=== PATIENT | female | born 1970 | race Caucasian/White ===

== ENCOUNTER 2023-06-21 19:57 | Inpatient (IN) | payer MEDICAID ==
[~2023-06-21] VITALS: Ht 160 cm; Wt 83.0 kg
[2023-06-21 20:06] VITALS: BP_SYST 133; PULSE 105; RESP 18; TEMP 99.1; O2SAT 100
[2023-06-21 20:48] LABS: BASOPHILS % (AUTO) 0.6 % (0.0-2.0); HEMATOCRIT 26.4 % (36-48); HEMOGLOBIN 8.1 g/dL (12.0-16.0); LYMPHOCYTES # (AUTO) 0.9 K/uL (1.0-5.5); LYMPHOCYTES % (AUTO) 10.9 % (20.5-51.5); MEAN CORPUSCULAR HEMOGLOBIN 18 pg (27-31); MEAN CORPUSCULAR HGB CONC 31 % (32-36); MEAN CORPUSCULAR VOLUME 60 fL (79.0-98.0); MONOCYTES # (AUTO) 0.5 K/uL (0.0-1.0); MONOCYTES % (AUTO) 6.4 % (1.7-9.3); NEUTROPHILS # (AUTO) 6.7 K/uL (1.8-7.7); NEUTROPHILS % (AUTO) 82.1 % (40.0-70.0); PLATELET COUNT (AUTO) 285 K/uL (130-430); RED BLOOD CELL COUNT(AUTO) 4.41 MIL/uL (4.2-6.2); RED CELL DISTRIBUTION WIDTH 20.8 % (9.0-15.0); WHITE BLOOD COUNT (AUTO) 8.1 K/uL (4.8-10.8)
[2023-06-21 20:52] LABS: ALANINE AMINOTRANSFERASE 137 U/L (12-78); ALBUMIN 3.4 g/dL (3.4-4.8); ANION GAP 10 (5-15); ASPARTATE AMINOTRANSFERASE 119 U/L (10-37); CALCIUM 9.5 mg/dL (8.4-11.0); CARBON DIOXIDE 26 mmol/L (23-29); CHLORIDE 101 mmol/L (98-107); CREATININE 0.81 mg/dL (0.55-1.30); GFR AFRICAN AMERICAN 96 mL/min (>90); GLUCOSE 112 mg/dL (74-106); POTASSIUM 3.1 mmol/L (3.5-5.1); SODIUM SERUM 137 mmol/L (136-145); TOTAL BILIRUBIN 0.5 mg/dL (0.0-1.0); TOTAL PROTEIN, SERUM 7.8 g/dL (6.4-8.3); UREA NITROGEN, BLOOD 12 mg/dL (8-21)
[2023-06-21 20:54] LABS: GFR NON AFRICAN-AMERICAN 80 mL/min (>90)
[2023-06-21 20:58] LABS: BILIRUBIN,DIRECT 0.2 mg/dL (0.0-0.3)
[2023-06-21 21:00] LABS: BILIRUBIN,URINE NEGATIVE (NEGATIVE); BLOOD, URINE NEGATIVE (NEGATIVE); COLOR,URINE YELLOW (YELLOW); GLUCOSE,URINE NEGATIVE (NEGATIVE); KETONES,URINE NEGATIVE (NEGATIVE); LEUKOCYTE ESTERASE ,URINE 2+ (NEGATIVE); NITRITE, URINE NEGATIVE (NEGATIVE); PH,URINE 6.5 (5.0-8.0); PROTEIN URINE 1+ (NEGATIVE)
[2023-06-21 21:02] LABS: ANISOCYTOSIS 2+; HYPOCHROMASIA 1+; OVALOCYTES FEW
[2023-06-21 21:07] LABS: CLARITY/URINE HAZY (CLEAR)
[2023-06-21 21:08] LABS: BACTERIA,URINE FEW /HPF (None Seen); MUCUS,URINE 1+ /LPF (None Seen); RBC,URINE 0-3 /HPF (0-3)
[2023-06-21] MEDS ORDERED: cefTRIAXone 1 GM VIAL ONE (21:34)
[2023-06-21] MEDS: cefTRIAXone 1 GM in D5W 50 ML IV ONE (21:44)
[2023-06-21] MEDS ORDERED: DOCUSATE SODIUM 100 MG CAPSULE PO PRN (21:45)
[2023-06-21] MEDS ORDERED: LORazepam 2 MG/ML VIAL IVP PRN (21:45)
[2023-06-21] MEDS ORDERED: MAGNESIUM SULFATE 50 ML IV PRN (21:45)
[2023-06-21] MEDS ORDERED: MUPIROCIN 2% TOPICAL OINTMENT 22 GM NS PRN (21:45)
[2023-06-21] MEDS ORDERED: ONDANSETRON HCL 4 MG/2 ML VIAL IVP PRN (21:45)
[2023-06-21] MEDS ORDERED: MORPHINE 2 MG/ML INJ. SYRINGE IVP PRN ×2 (21:45)
[2023-06-21] MEDS: POTASSIUM CHLORIDE 20 MEQ TABLET.ER PO ONE (21:49)
[2023-06-21] MEDS ORDERED: iohexoL 350 mgI/mL, 100 ML INFUS..BTL IV ONE (21:55)
[2023-06-21] MEDS ORDERED: LOSA-413 PO (22:45)
[2023-06-21] MEDS: NACL 0.9% 1,000 ML IV ONE (22:48)
[2023-06-21 23:50] LABS: INFLUENZA TYPE A Negative (NEGATIVE); INFLUENZA TYPE B NEGATIVE (NEGATIVE)
[2023-06-22 00:09] VITALS: BP_SYST 149; PULSE 104; RESP 17; TEMP 99.6; O2SAT 98
[2023-06-22] MEDS: NACL 0.9% 1,000 ML IV SCH (01:02)
[2023-06-22 06:17] LABS: CALCIUM 8.4 mg/dL (8.4-11.0); CREATININE 0.73 mg/dL (0.55-1.30); POTASSIUM 3.2 mmol/L (3.5-5.1)
[2023-06-22 06:19] LABS: LYMPHOCYTES # (AUTO) 0.9 K/uL (1.0-5.5); MONOCYTES # (AUTO) 0.5 K/uL (0.0-1.0); RED BLOOD CELL COUNT(AUTO) 3.91 MIL/uL (4.2-6.2)
[2023-06-22 06:29] LABS: BASOPHILS % (AUTO) 0.7 % (0.0-2.0); HEMATOCRIT 23.6 % (36-48); HEMOGLOBIN 7.1 g/dL (12.0-16.0); LYMPHOCYTES % (AUTO) 14.1 % (20.5-51.5); MEAN CORPUSCULAR HEMOGLOBIN 18 pg (27-31); MEAN CORPUSCULAR HGB CONC 30 % (32-36); MEAN CORPUSCULAR VOLUME 60 fL (79.0-98.0); MONOCYTES % (AUTO) 8.3 % (1.7-9.3); NEUTROPHILS # (AUTO) 4.7 K/uL (1.8-7.7); NEUTROPHILS % (AUTO) 76.9 % (40.0-70.0); PLATELET COUNT (AUTO) 271 K/uL (130-430); RED CELL DISTRIBUTION WIDTH 21.2 % (9.0-15.0); WHITE BLOOD COUNT (AUTO) 6.1 K/uL (4.8-10.8)
[2023-06-22 08:00] VITALS: BP_SYST 142; PULSE 92; RESP 20; TEMP 98; O2SAT 99
[2023-06-22 08:10] VITALS: O2SAT 97
[2023-06-22] MEDS: cefTRIAXone 1 GM in D5W 50 ML IV SCH (09:02)
[2023-06-22] MEDS: POTASSIUM CHLORIDE 20 MEQ TABLET.ER PO PRN (09:02)
[2023-06-22] MEDS: ACETAMINOPHEN 325 MG TABLET PO PRN (09:02)
[2023-06-22 16:00] VITALS: BP_SYST 138; PULSE 85; RESP 18; TEMP 97.3; O2SAT 98
[2023-06-22 20:00] VITALS: BP_SYST 130; PULSE 97; RESP 18; TEMP 97.5; O2SAT 95; O2SAT 97
[2023-06-23] VITALS (7 sets, daily range): BP systolic 135–144; PULSE 92–112; RESP 17–18; TEMP 97.5–103.1; O2SAT 94–97
[2023-06-23 05:43] LABS: BASOPHILS % (AUTO) 0.7 % (0.0-2.0); LYMPHOCYTES # (AUTO) 0.8 K/uL (1.0-5.5); LYMPHOCYTES % (AUTO) 13.8 % (20.5-51.5); MEAN CORPUSCULAR HEMOGLOBIN 18 pg (27-31); RETICULOCYTE COUNT 2.4 % (0.5-1.5)
[2023-06-23 05:47] LABS: INR 1.1 (0.8-1.2); PROTHROMBIN TIME 11.4 SECS (9.5-12.5)
[2023-06-23 05:54] LABS: CALCIUM 8.4 mg/dL (8.4-11.0); CREATININE 0.66 mg/dL (0.55-1.30); POTASSIUM 3.5 mmol/L (3.5-5.1)
[2023-06-23 06:17] LABS: EOSINOPHILS % (AUTO) 0.1 % (0.0-4.0); HEMATOCRIT 22.2 % (36-48); MEAN CORPUSCULAR HGB CONC 30 % (32-36); MEAN CORPUSCULAR VOLUME 60 fL (79.0-98.0); MONOCYTES # (AUTO) 0.3 K/uL (0.0-1.0); MONOCYTES % (AUTO) 5.9 % (1.7-9.3); NEUTROPHILS # (AUTO) 4.6 K/uL (1.8-7.7); PLATELET COUNT (AUTO) 231 K/uL (130-430); RED BLOOD CELL COUNT(AUTO) 3.69 MIL/uL (4.2-6.2); RED CELL DISTRIBUTION WIDTH 21.4 % (9.0-15.0); WHITE BLOOD COUNT (AUTO) 5.7 K/uL (4.8-10.8)
[2023-06-23 08:09] LABS: HEMOGLOBIN 6.7 g/dL (12.0-16.0)
[2023-06-23 08:12] LABS: NEUTROPHILS % (AUTO) 79.5 % (40.0-70.0)
[2023-06-23 08:48] LABS: ALBUMIN 2.7 g/dL (3.4-4.8); BILIRUBIN,DIRECT 0.1 mg/dL (0.0-0.3); TOTAL BILIRUBIN 0.3 mg/dL (0.0-1.0); TOTAL PROTEIN, SERUM 6.3 g/dL (6.4-8.3)
[2023-06-23] MEDS: ACETAMINOPHEN 325 MG TABLET PO ONE (14:14)
[2023-06-23] MEDS: DIPHENHYDRAMINE INJ 50 MG/ML VIAL IVP ONE (14:32)
[2023-06-23 16:14] LABS: TOTAL IRON BIND. CAPACITY 278 ug/dL (250-450)
[2023-06-23 18:34] LABS: TOTAL IRON BIND. CAPACITY 272 ug/dL (250-450)
[2023-06-24] VITALS: BP_SYST 135; PULSE 103; RESP 18; TEMP 98.2; O2SAT 95
[2023-06-24 05:36] LABS: BASOPHILS % (AUTO) 0.5 % (0.0-2.0); EOSINOPHILS % (AUTO) 0.1 % (0.0-4.0); HEMATOCRIT 24.4 % (36-48); HEMOGLOBIN 7.5 g/dL (12.0-16.0); LYMPHOCYTES # (AUTO) 0.7 K/uL (1.0-5.5); MEAN CORPUSCULAR HEMOGLOBIN 19 pg (27-31); MEAN CORPUSCULAR HGB CONC 31 % (32-36); MEAN CORPUSCULAR VOLUME 61 fL (79.0-98.0); MONOCYTES # (AUTO) 0.4 K/uL (0.0-1.0); MONOCYTES % (AUTO) 6.3 % (1.7-9.3); NEUTROPHILS # (AUTO) 5.4 K/uL (1.8-7.7); NEUTROPHILS % (AUTO) 82.1 % (40.0-70.0); PLATELET COUNT (AUTO) 214 K/uL (130-430); RED BLOOD CELL COUNT(AUTO) 3.99 MIL/uL (4.2-6.2); RED CELL DISTRIBUTION WIDTH 22.3 % (9.0-15.0); WHITE BLOOD COUNT (AUTO) 6.6 K/uL (4.8-10.8)
[2023-06-24 06:16] LABS: CALCIUM 8.3 mg/dL (8.4-11.0); CREATININE 0.69 mg/dL (0.55-1.30); POTASSIUM 3.1 mmol/L (3.5-5.1)
[2023-06-24 07:27] LABS: ERYTHROCYTE SEDIMENTATION RATE 70 MM/HR (0-20)
[2023-06-24 08:00] VITALS: BP_SYST 148; PULSE 112; RESP 20; TEMP 99.8; O2SAT 94
[2023-06-24 08:57] LABS: HYPOCHROMASIA 1+
[2023-06-24 08:58] LABS: ANISOCYTOSIS 2+; OVALOCYTES FEW; TARGET CELLS RARE
[2023-06-24 09:00] VITALS: O2SAT 94
[2023-06-24] MEDS: SOD FERRIC GLUC COMPLEX/SUC 125 MG in NS 100 ML IV SCH (12:36)
[2023-06-24 12:45] VITALS: BP_SYST 136; PULSE 115; RESP 20; TEMP 98.4; O2SAT 97
[2023-06-24] MEDS: LOSARTAN POTASSIUM 50 MG TABLET (COZAAR) PO ONE (14:16)
[2023-06-24 16:00] VITALS: BP_SYST 127; PULSE 88; RESP 16; TEMP 98.4; O2SAT 94
[2023-06-24] MEDS: BISACODYL 5 MG TABLET.DR (DULCOLAX) PO ONE (17:21)
[2023-06-24] MEDS: GOLYTELY / COLYTE SOLUTION 4 LITERS PO ONE (17:30)
[2023-06-24 20:00] VITALS: BP_SYST 129; PULSE 99; RESP 18; TEMP 99.2; O2SAT 95
[2023-06-25] VITALS: BP_SYST 125; PULSE 102; RESP 18; TEMP 98.8; O2SAT 96
[2023-06-25 04:45] LABS: ERYTHROCYTE SEDIMENTATION RATE 58 MM/HR (0-20)
[2023-06-25 05:07] LABS: INR 1.1 (0.8-1.2); PROTHROMBIN TIME 11.8 SECS (9.5-12.5)
[2023-06-25 05:12] LABS: ALBUMIN 2.5 g/dL (3.4-4.8); CREATININE 0.7 mg/dL (0.55-1.30); TOTAL BILIRUBIN 0.3 mg/dL (0.0-1.0); TOTAL PROTEIN, SERUM 6.1 g/dL (6.4-8.3)
[2023-06-25 05:34] LABS: BASOPHILS # (AUTO) 0.1 K/uL (0.0-0.2); BASOPHILS % (AUTO) 0.9 % (0.0-2.0); HEMATOCRIT 23.3 % (36-48); HEMOGLOBIN 7.3 g/dL (12.0-16.0); LYMPHOCYTES # (AUTO) 0.7 K/uL (1.0-5.5); LYMPHOCYTES % (AUTO) 9.9 % (20.5-51.5); MEAN CORPUSCULAR HEMOGLOBIN 19 pg (27-31); MEAN CORPUSCULAR HGB CONC 31 % (32-36); MEAN CORPUSCULAR VOLUME 61 fL (79.0-98.0); MONOCYTES # (AUTO) 0.4 K/uL (0.0-1.0); MONOCYTES % (AUTO) 5.4 % (1.7-9.3); NEUTROPHILS % (AUTO) 83.8 % (40.0-70.0); PLATELET COUNT (AUTO) 181 K/uL (130-430); RED BLOOD CELL COUNT(AUTO) 3.84 MIL/uL (4.2-6.2); RED CELL DISTRIBUTION WIDTH 22.4 % (9.0-15.0); WHITE BLOOD COUNT (AUTO) 7.1 K/uL (4.8-10.8)
[2023-06-25 05:56] LABS: POTASSIUM 2.7 mmol/L (3.5-5.1)
[2023-06-25] MEDS: KCL 20 mEq in 100 mL (PREMIX) 100 ML IV ONE (07:15)
[2023-06-25 07:22] LABS: SERUM HCG (QUALITATIVE) NEGATIVE (NEGATIVE)
[2023-06-25 08:15] VITALS: BP_SYST 133; PULSE 117; RESP 19; TEMP 101.5; O2SAT 93; O2SAT 96
[2023-06-25] MEDS ORDERED: KCL 20 mEq in 100 mL (PREMIX) 100 ML IV ONE (09:00)
[2023-06-25] MEDS: LOSARTAN POTASSIUM 50 MG TABLET (COZAAR) PO SCH (10:53)
[2023-06-25] MEDS: CALCIUM GLUC 2 GM/100ML-NACL 100 ML IV ONE (11:14)
[2023-06-25 15:05] VITALS: BP_SYST 128; PULSE 98; RESP 16; TEMP 97.2; O2SAT 98
[2023-06-25] MEDS ORDERED: SIMETHICONE 40 MG/0.6 ML ML ONE (15:05)
[2023-06-25] MEDS ORDERED: fentaNYL CITRATE/PF 100 MCG/2 ML AMP ONE (15:06)
[2023-06-25] MEDS ORDERED: MIDAZOLAM HCL 5 MG/5 ML VIAL ONE (15:06)
[2023-06-25] MEDS: POTASSIUM CHLORIDE 40 MEQ, LIDOCAINE JECT 2% PF 100 MG 75 MG in NS 250 ML IV ONE (16:02)
[2023-06-25 16:12] VITALS: BP_SYST 145; PULSE 103; RESP 16; TEMP 97.7; O2SAT 93
[2023-06-25] MEDS ORDERED: NS 500 ML IV ONE ×2 (18:00)
[2023-06-25 19:00] VITALS: O2SAT 97
[2023-06-25 20:00] VITALS: BP_SYST 155; PULSE 110; RESP 20; TEMP 100; O2SAT 95
[2023-06-25] MEDS: PANTOPRAZOLE SODIUM 40 MG/VIAL (PROTONIX) IVP SCH (20:58)
[2023-06-26] VITALS (9 sets, daily range): BP systolic 127–157; PULSE 92–106; RESP 18–20; TEMP 97.8–102.6; O2SAT 92–98
[2023-06-26 05:23] LABS: BASOPHILS # (AUTO) 0.2 K/uL (0.0-0.2); BASOPHILS % (AUTO) 2.5 % (0.0-2.0); LYMPHOCYTES # (AUTO) 0.7 K/uL (1.0-5.5); LYMPHOCYTES % (AUTO) 9.8 % (20.5-51.5); MEAN CORPUSCULAR HEMOGLOBIN 19 pg (27-31); MEAN CORPUSCULAR HGB CONC 31 % (32-36); MEAN CORPUSCULAR VOLUME 61 fL (79.0-98.0); MONOCYTES # (AUTO) 0.3 K/uL (0.0-1.0); MONOCYTES % (AUTO) 4.7 % (1.7-9.3); PLATELET COUNT (AUTO) 163 K/uL (130-430); RED BLOOD CELL COUNT(AUTO) 3.58 MIL/uL (4.2-6.2); RED CELL DISTRIBUTION WIDTH 22.6 % (9.0-15.0); WHITE BLOOD COUNT (AUTO) 7.2 K/uL (4.8-10.8)
[2023-06-26 05:32] LABS: CREATININE 0.69 mg/dL (0.55-1.30); POTASSIUM 3.1 mmol/L (3.5-5.1)
[2023-06-26 05:37] LABS: ERYTHROCYTE SEDIMENTATION RATE 60 MM/HR (0-20)
[2023-06-26 07:28] LABS: HEMOGLOBIN 6.7 g/dL (12.0-16.0)
[2023-06-26] MEDS ORDERED: fentaNYL CITRATE/PF 100 MCG/2 ML AMP ONE (08:39)
[2023-06-26] MEDS ORDERED: MIDAZOLAM HCL 5 MG/5 ML VIAL ONE (08:40)
[2023-06-26] MEDS: ACETAMINOPHEN 325 MG TABLET PO PRN (09:02)
[2023-06-26] MEDS ORDERED: LIDOCAINE 1%, 20 ML MDV 20 ML ONE (14:12)
[2023-06-26] MEDS: POTASSIUM CHLORIDE 40 MEQ, LIDOCAINE JECT 2% PF 100 MG 50 MG in NS 250 ML IV ONE (15:23)
[2023-06-26] MEDS: DIPHENHYDRAMINE INJ 50 MG/ML VIAL IVP ONE ×2 (16:54→18:19)
[2023-06-26] MEDS: CALCIUM GLUC 2 GM/100ML-NACL 100 ML IV ONE (17:18)
[2023-06-26] MEDS: DIPHENHYDRAMINE INJ 50 MG/ML VIAL ONE (18:06)
[2023-06-27 00:05] VITALS: BP_SYST 129; PULSE 99; RESP 19; TEMP 98.7; O2SAT 99
[2023-06-27 05:13] LABS: ALBUMIN 2.1 g/dL (3.4-4.8); CALCIUM 8.1 mg/dL (8.4-11.0); CREATININE 0.65 mg/dL (0.55-1.30); POTASSIUM 3.5 mmol/L (3.5-5.1); TOTAL BILIRUBIN 0.9 mg/dL (0.0-1.0); TOTAL PROTEIN, SERUM 5.7 g/dL (6.4-8.3)
[2023-06-27 05:29] LABS: BASOPHILS % (AUTO) 0.4 % (0.0-2.0); EOSINOPHILS % (AUTO) 0.2 % (0.0-4.0); HEMATOCRIT 24.3 % (36-48); HEMOGLOBIN 7.7 g/dL (12.0-16.0); LYMPHOCYTES # (AUTO) 0.3 K/uL (1.0-5.5); LYMPHOCYTES % (AUTO) 4.2 % (20.5-51.5); MEAN CORPUSCULAR HEMOGLOBIN 20 pg (27-31); MEAN CORPUSCULAR HGB CONC 32 % (32-36); MEAN CORPUSCULAR VOLUME 63 fL (79.0-98.0); MONOCYTES # (AUTO) 0.4 K/uL (0.0-1.0); MONOCYTES % (AUTO) 5.7 % (1.7-9.3); NEUTROPHILS % (AUTO) 89.5 % (40.0-70.0); PLATELET COUNT (AUTO) 148 K/uL (130-430); RED BLOOD CELL COUNT(AUTO) 3.84 MIL/uL (4.2-6.2); RED CELL DISTRIBUTION WIDTH 25.4 % (9.0-15.0); WHITE BLOOD COUNT (AUTO) 7.8 K/uL (4.8-10.8)
[2023-06-27 06:10] LABS: ERYTHROCYTE SEDIMENTATION RATE 40 MM/HR (0-20)
[2023-06-27 08:12] VITALS: BP_SYST 143; PULSE 115; RESP 20; TEMP 100.9; O2SAT 93
[2023-06-27 13:25] VITALS: BP_SYST 139; PULSE 111; RESP 20; TEMP 100.3; O2SAT 94
[2023-06-27 20:02] VITALS: BP_SYST 129; PULSE 101; RESP 20; TEMP 99.5; O2SAT 95; O2SAT 96
[2023-06-28 00:45] VITALS: BP_SYST 131; PULSE 105; RESP 20; TEMP 99.8
[2023-06-28 06:09] LABS: BASOPHILS % (AUTO) 0.1 % (0.0-2.0); EOSINOPHILS # (AUTO) 0.1 K/uL (0.0-0.4); EOSINOPHILS % (AUTO) 0.6 % (0.0-4.0); HEMATOCRIT 24.2 % (36-48); HEMOGLOBIN 7.6 g/dL (12.0-16.0); LYMPHOCYTES # (AUTO) 0.7 K/uL (1.0-5.5); LYMPHOCYTES % (AUTO) 7.7 % (20.5-51.5); MEAN CORPUSCULAR HEMOGLOBIN 20 pg (27-31); MEAN CORPUSCULAR HGB CONC 32 % (32-36); MEAN CORPUSCULAR VOLUME 64 fL (79.0-98.0); MONOCYTES # (AUTO) 0.6 K/uL (0.0-1.0); MONOCYTES % (AUTO) 6.2 % (1.7-9.3); NEUTROPHILS # (AUTO) 7.8 K/uL (1.8-7.7); NEUTROPHILS % (AUTO) 85.4 % (40.0-70.0); PLATELET COUNT (AUTO) 208 K/uL (130-430); RED BLOOD CELL COUNT(AUTO) 3.79 MIL/uL (4.2-6.2); RED CELL DISTRIBUTION WIDTH 25.3 % (9.0-15.0); WHITE BLOOD COUNT (AUTO) 9.2 K/uL (4.8-10.8)
[2023-06-28 06:12] LABS: CALCIUM 7.9 mg/dL (8.4-11.0); CREATININE 0.66 mg/dL (0.55-1.30); POTASSIUM 3.2 mmol/L (3.5-5.1)
[2023-06-28 06:15] LABS: ERYTHROCYTE SEDIMENTATION RATE 46 MM/HR (0-20)
[2023-06-28 07:57] VITALS: BP_SYST 139; PULSE 68; RESP 18; TEMP 99.5; O2SAT 98
[2023-06-28 11:44] VITALS: BP_SYST 140; PULSE 89; RESP 20; TEMP 98.9; O2SAT 99
[2023-06-28] MEDS: NORMAL SALINE 5 ML DISP.SYRIN IVF SCH (12:27)
[2023-06-28 16:16] VITALS: BP_SYST 155; PULSE 103; RESP 18; TEMP 97.7; O2SAT 98
[2023-06-28 20:00] VITALS: BP_SYST 150; PULSE 113; RESP 18; TEMP 98.6; O2SAT 95; O2SAT 97
[2023-06-29] VITALS: BP_SYST 137; PULSE 94; RESP 18; TEMP 98.4; O2SAT 97
[2023-06-29 06:40] LABS: BASOPHILS % (AUTO) 0.4 % (0.0-2.0); EOSINOPHILS # (AUTO) 0.1 K/uL (0.0-0.4); EOSINOPHILS % (AUTO) 1.2 % (0.0-4.0); HEMATOCRIT 24.8 % (36-48); HEMOGLOBIN 7.8 g/dL (12.0-16.0); LYMPHOCYTES # (AUTO) 1.7 K/uL (1.0-5.5); LYMPHOCYTES % (AUTO) 19.5 % (20.5-51.5); MEAN CORPUSCULAR HEMOGLOBIN 20 pg (27-31); MEAN CORPUSCULAR HGB CONC 31 % (32-36); MEAN CORPUSCULAR VOLUME 64 fL (79.0-98.0); MONOCYTES # (AUTO) 0.6 K/uL (0.0-1.0); MONOCYTES % (AUTO) 6.8 % (1.7-9.3); NEUTROPHILS # (AUTO) 6.3 K/uL (1.8-7.7); NEUTROPHILS % (AUTO) 72.1 % (40.0-70.0); PLATELET COUNT (AUTO) 216 K/uL (130-430); RED BLOOD CELL COUNT(AUTO) 3.86 MIL/uL (4.2-6.2); RED CELL DISTRIBUTION WIDTH 25.6 % (9.0-15.0); WHITE BLOOD COUNT (AUTO) 8.8 K/uL (4.8-10.8)
[2023-06-29 06:57] LABS: CALCIUM 7.8 mg/dL (8.4-11.0); CREATININE 0.51 mg/dL (0.55-1.30); POTASSIUM 3.2 mmol/L (3.5-5.1); TOTAL BILIRUBIN 0.4 mg/dL (0.0-1.0); TOTAL PROTEIN, SERUM 5.4 g/dL (6.4-8.3)
[2023-06-29 08:05] VITALS: BP_SYST 134; PULSE 88; RESP 20; TEMP 98.9; O2SAT 95
[2023-06-29 08:19] LABS: ANISOCYTOSIS 2+; HYPOCHROMASIA 2+; OVALOCYTES FEW; POLYCHROMASIA SLIGHT; TARGET CELLS FEW
[2023-06-29] MEDS: cefTRIAXone 1 GM in D5W 50 ML IV SCH (11:33)
[2023-06-29 12:00] VITALS: BP_SYST 140; PULSE 104; RESP 18; TEMP 99.3; O2SAT 95
[2023-06-29] MEDS ORDERED: FERR325T30 PO (12:09)
[2023-06-29] MEDS ORDERED: DOCU-144 PO (12:09)
[2023-06-29 14:22] VITALS: BP_SYST 140; PULSE 104; RESP 16; TEMP 99.3; O2SAT 95
[2023-06-29] MEDS: POTASSIUM CHLORIDE 20 MEQ TABLET.ER PO ONE (14:44)
== END 2023-06-29 14:50 | disposition home or self-care (01) | DRG 241 ==
LOC: SED 19:57 → STU 21:37
PROVIDERS: ADMIT Family Medicine; ATTEND Family Medicine
PROC: 30233N1 Transfusion of Nonautologous Red Blood Cells into Peripheral Vein, Percutaneous Approach (ICD-10-PCS; principal; 2023-06-23)
PROC: 0DJD8ZZ Inspection of Lower Intestinal Tract, Via Natural or Artificial Opening Endoscopic (ICD-10-PCS; 2023-06-23)
PROC: 0DB98ZX Excision of Duodenum, Via Natural or Artificial Opening Endoscopic, Diagnostic (ICD-10-PCS; 2023-06-23)
PROC: 0DB68ZX Excision of Stomach, Via Natural or Artificial Opening Endoscopic, Diagnostic (ICD-10-PCS; 2023-06-23)
PROC: 0BBG3ZX Excision of Left Upper Lung Lobe, Percutaneous Approach, Diagnostic (ICD-10-PCS; 2023-06-26)
DX: K29.70 Gastritis, unspecified, without bleeding (principal); E43 Unspecified severe protein-calorie malnutrition; E87.20 Acidosis, unspecified; D62 Acute posthemorrhagic anemia; E83.51 Hypocalcemia; E87.1 Hypo-osmolality and hyponatremia; K20.90 Esophagitis, unspecified without bleeding; E88.09 Other disorders of plasma-protein metabolism, not elsewhere classified; N39.0 Urinary tract infection, site not specified; Z20.822 Contact with and (suspected) exposure to COVID-19; R07.89 Other chest pain; E87.6 Hypokalemia; I10 Essential (primary) hypertension; K44.9 Diaphragmatic hernia without obstruction or gangrene; K64.4 Residual hemorrhoidal skin tags; N85.00 Endometrial hyperplasia, unspecified; Z80.9 Family history of malignant neoplasm, unspecified; Z79.899 Other long term (current) drug therapy; Z68.32 Body mass index [BMI] 32.0-32.9, adult; K64.8 Other hemorrhoids; R91.8 Other nonspecific abnormal finding of lung field
CPT/HCPCS: 36415; 43239; 45378; 71045; 71275; 76856; 77012; 80048; 80053; 80076; 81000; 81001; 81015; 83540; 83550; 83605; 83735; 84132; 84484; 84703; 85025; 85044; 85379; 85384; 85610; 85651; 85730; 86304; 86886; 86900; 86901; 86920; 87040; 87081; 87086; 88305; 88312; 88313; 93005; 93306; 96361; 96365; 99285; C9113; G0378; J0696; J1200; J2001; J2250; J2916; J3010; J3480; J7050; J7060; P9021; Q9967